=== PATIENT | male | born 1970 | race Caucasian/White ===

== ENCOUNTER → 2021-07-10 14:36 | Outpatient (BNVA) | payer MEDICARE, MEDICAID, SELFPAY | PROVIDERS: Visit Provider Psychiatry & Neurology Neurology | DX: G47.33 Obstructive sleep apnea (adult) (pediatric) (principal); G47.31 Primary central sleep apnea; G51.0 Bell's palsy; C71.9 Malignant neoplasm of brain, unspecified; Z99.89 Dependence on other enabling machines and devices | CPT/HCPCS: 99212 ==

== ENCOUNTER → 2021-10-17 10:24 | Outpatient (BNVA) | payer MEDICARE, MEDICAID, SELFPAY | PROVIDERS: PCP Nurse Practitioner Adult Health; Visit Provider Psychiatry & Neurology Neurology | DX: G47.33 Obstructive sleep apnea (adult) (pediatric) (principal); G51.0 Bell's palsy; G47.31 Primary central sleep apnea; C71.9 Malignant neoplasm of brain, unspecified; Z99.81 Dependence on supplemental oxygen | CPT/HCPCS: 99212 ==

== ENCOUNTER → 2021-11-23 15:07 | Outpatient (BNVA) | payer MEDICARE, MEDICAID, SELFPAY | PROVIDERS: PCP Nurse Practitioner Adult Health; Visit Provider Nurse Practitioner Family | DX: G47.33 Obstructive sleep apnea (adult) (pediatric) (principal); G51.0 Bell's palsy; C71.9 Malignant neoplasm of brain, unspecified; G47.31 Primary central sleep apnea | CPT/HCPCS: 99212 ==

== ENCOUNTER → 2022-02-18 09:29 | Outpatient (BNVA) | payer MEDICARE, MEDICAID, SELFPAY | PROVIDERS: PCP Nurse Practitioner Adult Health; Visit Provider Nurse Practitioner Family | DX: G47.33 Obstructive sleep apnea (adult) (pediatric) (principal); M54.2 Cervicalgia | CPT/HCPCS: 99212 ==

== ENCOUNTER → 2022-08-14 08:21 | Outpatient (BNVA) | payer MEDICARE, MEDICAID, SELFPAY | PROVIDERS: PCP Nurse Practitioner Adult Health; Visit Provider Nurse Practitioner Family | DX: G47.33 Obstructive sleep apnea (adult) (pediatric) (principal); Z99.89 Dependence on other enabling machines and devices | CPT/HCPCS: 99212 ==

== ENCOUNTER 2023-02-13 09:06 | Outpatient (AMB) | payer MEDICARE, MEDICAID, SELFPAY ==
--- NOTE | 2023-02-13 09:10 | MHC.OFFVIS ---
Intake Vital Signs 02/13/23 09:11 Height 6 ft Pulse 81 Pulse Source Pulse Oximeter Pulse Oximetry (%) 95 Oxygen Delivery Method Room Air Intake Visit Reasons: 6 mnts f/u sleep compliance - Confirmed Intake Note: Patient presents for 6 month follow up sleep compliance. Patient states no issues today, Im interested in getting more information on the inspire procedure. Allergies morphine Adverse Reaction (Intermediate, Verified 02/13/23 09:13) irritation HPI HPI Comments History of Present Illness Details 52 y/o male patient presents for follow up of TJ. CPAP compliance report is not available at this time, pt needs to send SD card. He is on CPAP at 9 cmH2O. Pt reports he uses CPAP nightly. Pt reports he can sleep well with CPAP, average 7 hours nightly. He states that bloating has been better, but when his headgear strap loose he gets more bloating. Daytime tiredness has improved, not dozing off. 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 GERD (gastroesophageal reflux disease) Kidney stones Obesity Tremors of nervous system Surgical History H/O of thyroplasty H/O nasal septoplasty Family History Father History of heart attack Mother Breast cancer Maternal Grandfather Prostate cancer Social History Alcohol intake: current Alcohol intake frequency: holidays/special occasions only Patient Tobacco Use Status: Never used Tobacco Review of Systems Const All systems reviewed & are unremarkable except as noted in HPI and below ENT Reports Normal hearing present Neuro Reports Normal hearing present and Reports Abnormal speech present (Dysarthria.) Physical Exam Vital Signs: Last Vital Signs Pulse 81 02/13/23 09:11 Pulse Ox 95 02/13/23 09:11 Oxygen Delivery Method Room Air 02/13/23 09:11 Const General: cooperative Nutritional Appearance: obese Orientation/consciousness: patient oriented x3 Limitations: wheelchair Neck Other: Limited ROM of neck due to neck pain. Resp Effort & Inspection: normal respiratory effort and able to speak in complete sentences Neuro Other: Right eye and facial droop. General: patient oriented x3 Cranial nerves: Yes Normal hearing present Cognition (Neuro): normal cognition Speech: Abnormal speech present (Dysarthria.) Gait exam (Neuro): Assistive device used (wheel chair.) Deep tendon reflexes (DTR's): Right triceps reflex intensity grade: 2+, Left triceps reflex intensity grade: 2+, Rt Biceps (C5, C6): 2+, Left biceps reflex intensity grade: 2+, Right brachioradialis reflex intensity grade: 2+ and Left brachioradialis reflex intensity grade: 2+ Psych Appearance: grossly normal Mental Status: mental status grossly normal Affect: normal affect Attitude: cooperative Assessment & Plan Assessment & Plan (1) Obstructive sleep apnea: Code(s): G47.33 - Obstructive sleep apnea (adult) (pediatric) Plan Continue to use CPAP at 9 cmH2O. Stressed compliance, use CPAP nightly and more than 4 hours. Called [employer] and to send new SD card to patient and new headgear strap. Pt will call if his symptoms worsened or any questions. Coding Level of Care Code Est Pt Level 3 (97241) Diagnoses Obstructive sleep apnea G47.33
[2023-02-13 09:11] VITALS: PULSE 81; O2SAT 95
== END 2023-02-13 09:33 | disposition home or self-care (01) ==
PROVIDERS: Visit Provider Nurse Practitioner Family
DX: G47.33 Obstructive sleep apnea (adult) (pediatric) (principal)
CPT/HCPCS: 99213

== ENCOUNTER → 2023-02-13 09:06 | Outpatient (BNVA) | payer MEDICARE, MEDICAID, SELFPAY | PROVIDERS: Visit Provider Nurse Practitioner Family | DX: G47.33 Obstructive sleep apnea (adult) (pediatric) (principal) | CPT/HCPCS: 99212 ==

== ENCOUNTER 2023-04-17 10:35 | Outpatient (AMB) | payer MEDICARE, MEDICAID, SELFPAY ==
[2023-04-17 10:46] VITALS: BP 116/70; PULSE 80; O2SAT 95; BMI 40.5
--- NOTE | 2023-04-17 10:46 | A.OFFVIS_ITS ---
Intake Vital Signs 04/17/23 10:46 Height 6 ft Weight 299 lb BMI 40.5 BP 116/70 Blood Pressure Location Lt brachial Position Sitting Pulse 80 Pulse Source Pulse Oximeter Pulse Oximetry (%) 95 Oxygen Delivery Method Room Air Intake Visit Reasons: 3 no f/u - Sleep-Confirmed Intake Note: Patient presents for a 3 mo fu-TJ Leasing Assistant Required: No Accompanied by: Self / Same As Patient Allergies morphine Adverse Reaction (Intermediate, Verified 04/17/23 10:50) irritation HPI HPI Comments History of Present Illness Details 53 y/o male patient presents for follow up of TJ. CPAP compliance report is not available at this time, pt needs to send SD card, but he did not. He is on CPAP at 9 cmH2O. Pt reports he uses CPAP nightly. Pt reports he can sleep well with CPAP, average 7 hours nightly. He states that bloating has been better, but when his headgear strap loose he gets more bloating. He has received new headgear. Daytime tiredness has improved, not dozing off. 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 GERD (gastroesophageal reflux disease) Kidney stones Obesity Tremors of nervous system Surgical History H/O of thyroplasty H/O nasal septoplasty Family History Father History of heart attack Mother Breast cancer Maternal Grandfather Prostate cancer Social History Alcohol intake: current Alcohol intake frequency: holidays/special occasions only Patient Tobacco Use Status: Never used Tobacco Review of Systems Const All systems reviewed & are unremarkable except as noted in HPI and below ENT Reports Normal hearing present Neuro Reports Normal hearing present and Reports Abnormal speech present (Dysarthria.) Physical Exam Vital Signs: Last Vital Signs Pulse 80 04/17/23 10:46 BP 116/70 04/17/23 10:46 Pulse Ox 95 04/17/23 10:46 Oxygen Delivery Method Room Air 04/17/23 10:46 BMI result Body Mass Index 40.5 Const General: cooperative Nutritional Appearance: obese Orientation/consciousness: patient oriented x3 Limitations: wheelchair Neck Other: Limited ROM of neck due to neck pain. Resp Effort & Inspection: normal respiratory effort and able to speak in complete sentences Neuro Other: Right eye and facial droop. General: patient oriented x3 Cranial nerves: Yes Normal hearing present Cognition (Neuro): normal cognition Speech: Abnormal speech present (Dysarthria.) Gait exam (Neuro): Assistive device used (wheel chair.) Deep tendon reflexes (DTR's): Right triceps reflex intensity grade: 2+, Left triceps reflex intensity grade: 2+, Rt Biceps (C5, C6): 2+, Left biceps reflex intensity grade: 2+, Right brachioradialis reflex intensity grade: 2+ and Left brachioradialis reflex intensity grade: 2+ Psych Appearance: grossly normal Mental Status: mental status grossly normal Affect: normal affect Attitude: cooperative Assessment & Plan Assessment & Plan (1) Obstructive sleep apnea: Code(s): G47.33 - Obstructive sleep apnea (adult) (pediatric) Plan Continue to use CPAP at 9 cmH2O. Stressed compliance, use CPAP nightly and more than 4 hours. Called [employer] and to send new SD card to patient. Pt will call if his symptoms worsened or any questions. Coding Level of Care Code Est Pt Level 3 (43277) Diagnoses Obstructive sleep apnea G47.33
== END 2023-04-17 11:09 | disposition home or self-care (01) ==
PROVIDERS: PCP Nurse Practitioner Adult Health; Visit Provider Nurse Practitioner Family
DX: G47.33 Obstructive sleep apnea (adult) (pediatric) (principal)
CPT/HCPCS: 99213

== ENCOUNTER → 2023-04-17 10:35 | Outpatient (BNVA) | payer MEDICARE, MEDICAID, SELFPAY | PROVIDERS: PCP Nurse Practitioner Adult Health; Visit Provider Nurse Practitioner Family | DX: G47.33 Obstructive sleep apnea (adult) (pediatric) (principal) | CPT/HCPCS: 99212 ==

== ENCOUNTER 2024-02-20 09:24 | Outpatient (AMB) | payer MEDICARE, MEDICAID, SELFPAY ==
--- NOTE | 2024-02-20 09:43 | MHC.OFFVIS ---
Vital Signs 02/20/24 09:43 Height 6 ft Intake Visit Reasons: 6 mo f/u - Sleep Intake Note: Patient presents for 6 month follow up sleep. Allergies morphine Adverse Reaction (Intermediate, Verified 02/20/24 09:59) irritation Medication List - Last Reconciled 03/02/24 by KAREN Jones cholecalciferol (vitamin D3) 25 mcg PO DAILY lisinopril 20 mg PO DAILY magnesium oxide 200 - 400 mg (1 - 2 x 200 mg magnesium) PO BEDTIME 30 days omeprazole 20 mg PO DAILY vit C-vit P-Bg-Do-lutein-zeax 250 mg-200 unit -12.5 mg-1 mg (ICaps AREDS2 (copper citrate)) 2 tabs PO DAILY HPI Comments Details: 53 yo male w/ h/o astrocytoma, facial paralysis on the right side, presents for f/u of TJ Pt is compliant w/ CPAP tx. He is sleeping about 7 hours a night, 10pm is bedtime and wakes up early at 4am or sometimes sleeps in until 7am or 8am and feeling tired. He washes the mask, cleans with rubbing alcohol, changes the filters, uses distilled water. He reports no leaks, and has a snug fit most evenings. PAP compliance report shows residual AHI is 5.6, which is good for him. He reports new symptoms which are concerning for him: When he lies down he sees an explosion. Through out the day he smells smoke like something is burning 2 or 3 days per week. These episodes last for 10 seconds, he looks to see if something is on fire, burning toast, and or smell of wood burning. He has Macular degeneration so things tend to be blurry at baseline but worse when tired, uses AREDS BID. Uses reading glasses and everything is clearer. Denies headaches, vomiting, or swallowing issue. Feels dizzy when sits sometimes from a standing position or if he gets up too fast. Left side hip numbness at night, which goes away when turns over. 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 He relies on w/c for distance mobility. 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 Tremors of nervous system Obesity GERD (gastroesophageal reflux disease) Astrocytoma brain tumor Surgical History H/O of thyroplasty H/O nasal septoplasty Family History Father History of heart attack Mother Breast cancer Maternal Grandfather Prostate cancer Social History Alcohol intake: current Alcohol intake frequency: holidays/special occasions only Patient Tobacco Use Status: Never used Tobacco Physical Exam Const General: cooperative and no acute distress Orientation/consciousness: patient oriented x3 Resp Effort & Inspection: normal respiratory effort and able to speak in complete sentences Neuro Other: Chronic right facial droop, right lingual atrophy, dysarthria. Pt sitting upright in w/c. General: patient oriented x3 and moves all extremities Cognition (Neuro): normal cognition Deep tendon reflexes (DTR's): Right patellar reflex intensity grade: 2+ and Left patellar reflex intensity grade: 2+ Psych Appearance: grossly normal Mental Status: mental status grossly normal Affect: normal affect Attitude: cooperative Assessment & Plan Assessment & Plan (1) Olfactory hallucinations: Code(s): R44.2 - Other hallucinations Category: Medical (2) Obstructive sleep apnea: Code(s): G47.33 - Obstructive sleep apnea (adult) (pediatric) Category: Medical (3) Central sleep apnea: Code(s): G47.31 - Primary central sleep apnea Category: Medical (4) 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 Will send patient for MRI. EEG Testing with cap, as glue adheres to his scalp and is not tolerable. For new onset olfactory hallucinations of smelling burnt toast and wood in setting of h/o astrocytoma, and new onset episodes of loud noise sounds like explosions: Brain MRI w/wo- at [facility] per pt request EEG - at [facility] per pt request- pt requests EEG be done w/ cap d/t glue sticking on to his scalp. Mg 200- 400 at bedtime. Will follow-up upon review of above and patient to follow-up in clinic in 6 months or sooner prn. Pt seen by Sweta MORRIS in coordination w/ myself KAREN Jones-ANASTASIIA, I agree with the above documentation and plan. 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
== END 2024-02-20 10:56 | disposition home or self-care (01) ==
LOC: HO.HSMS 09:25
PROVIDERS: Absent Provider Nurse Practitioner Family; PCP Nurse Practitioner Adult Health; Visit Provider Nurse Practitioner Family
DX: R44.2 Other hallucinations (principal); G47.33 Obstructive sleep apnea (adult) (pediatric); G47.31 Primary central sleep apnea; G51.0 Bell's palsy
CPT/HCPCS: 99214

== ENCOUNTER → 2024-02-20 09:24 | Outpatient (BNVA) | payer MEDICARE, MEDICAID, SELFPAY | PROVIDERS: Absent Provider Nurse Practitioner Family; PCP Nurse Practitioner Adult Health; Visit Provider Nurse Practitioner Family | DX: R44.2 Other hallucinations (principal); G47.33 Obstructive sleep apnea (adult) (pediatric); G47.31 Primary central sleep apnea; G51.0 Bell's palsy | CPT/HCPCS: 99212 ==

== ENCOUNTER 2024-08-25 08:25 | Outpatient (AMB) | payer MEDICARE, MEDICAID, SELFPAY ==
--- OUTSIDE RECORDS SUMMARY | 2024-08-25 08:37 | XMS_ITS | Data Portability ---
Author Organization [place] - [facility], Allergy Address [address] [place] [address] Care Team Providers Care Commercial Credit Specialist Name Role Phone MICH BOTELLO Primary Care Provider Assessment Encounter Date Assessment Date Assessment LastModified by Organization Details LastModified Time 11/04/2023 11/04/2023 Recommendations : Follow up with referring provider. Not available 11/04/2023 10:39:59 06/17/2024 06/17/2024 54-year-old male presents today for ear cleaning. He has a history of astrocytoma status post surgery and radiation. He reports that for the past six weeks his hearing has seemed diminished despite use of hearing aids. He reports that he has longstanding tinnitus but now it seems louder. Right ear was cleaned of cerumen with suction. TM was intact with well aerated middle ear space. Left ear was debrided and there was a mixture of cerumen and purulent debris. I have issued him a prescription for Ciprodex drops. I would like to see him back in two weeks for reevaluation. Once the infection is cleared he would likely benefit from updated audiometric testing. Not available 06/17/2024 11:01:50 07/01/2024 07/01/2024 Left otorrhea resolved. Audiometric testing demonstrates stable hearing on the right. He has had mild decline in his hearing on the left. Type A tympanograms bilaterally. He was issued a copy of his audiogram to bring to [facility] to have his hearing aid adjusted. He will follow up in 3 months for ear cleaning. Not available 07/01/2024 10:35:26 Plan of Treatment Reminders Order Date Submit Date Provider Last Modified By Organization Details Last Modified Time Details Appointments Establish ed 15 2024 09:30A M ROCCO VILLA PA-C Not available Not available Not available Lab None recorded. Referral None recorded. Procedures None recorded. Surgeries None recorded. Imaging None recorded. Medication Orders Ciprodex 0.3 %-0.1 % ear drops,ayala pension 2024 025 [facility], [address] [place] [address], [id number], 07/01/2024 09:33:03 Patient TargetsNo targets recorded. Patient InstructionsNo instructions recorded. Reason for Referral None Reported. Results Created Date Observation Date Name Description Value Unit Range Abnormal Flag Note LastModifiedBy Organization Detail LastModifiedTime 11/05/19 audio gram No observ ation record ed. BARCODE Not Available 2023 12:34:40 12/09/19 24 10/11/2021 imagi ng/di agnos tic resul t No observ ation record ed. [email or web address] Not Available 20:51:22 12/09/19 24 10/11/2021 imagi ng/di agnos tic resul t No observ ation record ed. [email or web address] Not Available 20:51:30 12/09/19 24 10/28/2022 imagi ng/di agnos tic resul t No observ ation record ed. [email or web address] Not Available 20:51:31 12/09/19 24 10/28/2022 imagi ng/di agnos tic resul t No observ ation record ed. [email or web address] Not Available 20:51:35 12/09/19 24 03/25/2019 audio gram No observ ation record ed. [email or web address] Not Available 20:51:40 12/09/19 24 10/11/2021 audio gram No observ ation record ed. [email or web address] Not Available 20:52:45 12/09/19 24 01/25/2019 audio gram No observ ation record ed. [email or web address] Not Available 20:53:18 12/09/19 24 03/25/2019 audio gram No observ ation record ed. [email or web address] Not Available 20:53:25 07/02/19 25 audio gram No observ ation record ed. BARCODE Not Available 2024 14:49:03 Result Notes None recorded. Problems Name Problem SNOMED Code Status Onset Date Resolution Date Notes Provider Name and Address Organization Details Recorded Time Impacted cerumen in right ear 08983716114 60062 Active 2018 Impacted cerumen, right ear; Note: Date Diagnose d: 9 11:32 AM (H61.21) Not Available [facility] 4 02:59:21 Sensorin eural hearing loss of bilatera l ears 893973334 Active 2021 Sensorin eural hearing loss, bilatera l; Note: Date Diagnose d: 2 10:20 AM (H90.3) Not Available [facility] 4 02:59:22 Otorrhea of left ear 53938924004 15657 Completed 201911/21/2023 Otorrhea , left ear; Note: Date Diagnose d: 0 9:43 AM (H92.12) ROCCO VILLA PA-C [address] [place] [address], [place], [address] , 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; Note: Date Diagnose d: 7 1:00 PM (G51.8) Not Available [facility] 4 02:59:22 Bilatera l tinnitus 83899297930 02 Active 2021 Tinnitus , bilatera l; Note: Date Diagnose d: 2 10:20 AM (H93.13) Not Available [facility] 4 02:59:21 Vasomoto r rhinitis 7275689 Active 2019 Vasomoto r rhinitis ; Note: Date Diagnose d: 06/24/2019 9:44 AM (J30.0) Not Available [facility] 4 02:59:23 Impacted cerumen in left ear 91529247132 60805 Active 2022 Impacted cerumen, left ear; Note: Date Diagnose d: 3 10:11 AM (H61.22) Not Available [facility] 4 02:59:21 Impacted cerumen of bilatera l ears 17882100568 68247 Active 2016 Impacted cerumen, bilatera l; Note: Date Diagnose d: 7 11:47 AM (H61.23) Not Available [facility] 4 02:59:24 Sensorin eural hearing loss 05288330 Active 2016 Sensorin eural hearing loss, unilater al, right ear, with unrestri cted hearing on the contrala teral side; Note: Date Diagnose d: 7 11:46 AM (H90.41) Not Available [facility] 4 02:59:23 Obstruct severino sleep apnea syndrome 27784345 Active 2023 Obstruct severino sleep apnea (adult) (pediatr ic); Note: Date Diagnose d: 07/29/2023 12:16 PM (G47.33) Not Available [facility] 4 02:59:22 Nasal congesti on 39927288 Active 2023 Nasal congesti on; Note: Date Diagnose d: 07/29/2023 12:16 PM (R09.81) Not Available [facility] 4 02:59:23 Otorrhea of left ear 32230850684 22344 Active 2024 Otorrhea , left ear; Note: Date Diagnose d: 0 9:43 AM (H92.12) ROCCO VILLA PA-C [address] [place] [address], [place], [address] , [facility] - [facility] 5 10:39:29 Problem Notes None recorded. Procedures Surgical History Date Name Laterality Status Provider Name and Address Organization Details Recorded Time 5 Comp Audio with Tymps - 53250 & 90117 completed ESTEVAN ARBOUR, AUD [address], [place], [address], [place] - [facility] 07/01/2024 09:55:23 5 Cerumen removal without microscope bilat completed ROCCO VILLA PA-C [address], [place], [address], [place] - [facility] 06/17/2024 10:56:37 4 Air & Speech Audio with Tymps - 28372, 05796 & 10592 completed LEANNE MARVIN, AuD [address], [place], [address], [place] - [facility] 11/04/2023 10:52:43 Imaging Results Imaging Date Name Status LastModified by Organiz ation Details LastModified Time 11/05/2023 audiogram completed BARCODE Information no t available 11/05/2023 12:34:40 10/11/2021 imaging/diagno stic result completed Information not available 12/09/2023 20:51:22 10/11/2021 imaging/diagno stic result completed Information not available 12/09/2023 20:51:30 10/28/2022 imaging/diagno stic result completed Information not available 12/09/2023 20:51:31 10/28/2022 imaging/diagno stic result completed Information not available 12/09/2023 20:51:35 03/25/2019 audiogram completed Information not available 12/09/2023 20:51:40 10/11/2021 audiogram completed Information not available 12/09/2023 20:52:45 01/25/2019 audiogram completed Information not available 12/09/2023 20:53:18 03/25/2019 audiogram completed Information not available 12/09/2023 20:53:25 07/01/2024 audiogram completed BARCODE Information no t available 07/01/2024 14:49:03 Procedure Notes None recorded. Medical Equipment None Reported. Allergies Allergen ID Allergen Name Allergen Category Reaction Reaction Severity Criticality Documentation Date Start Date Code Code System Note Provider Name and Address Organization Details Recorded Time 474171 morphine medicatio n other Not available Not available 09/02/2023 7052 RxNorm React ion: unkno wn, unspe cifie d;; Not Available [facility] 4 01:17:04 955665 Demerol medicatio n Not available Not available Not available 11/04/2023 92937 1 RxNorm Юлия Kelsea aaron [place] - [facility] 4 10:15:52 Medications Name Sig Start Date Stop Date Status Note LastModified by Organization Details LastModified Time lisinopri l 20 mg tablet active Not Available Not Available Not Available triamcino lone acetonide 0.1 % topical cream 11/03 completed Not Available Not Available Not Available ofloxacin 0.3 % ear drops 11/03 completed Medicati on ID: [id number] D uration Value: 10 Brand Name: ofloxaci n Send Method: E-Prescr ibed Sub s Allowed: subs OK Speci al Instruct ion: Apply 4 drops to left ear twice a day for 10 days Med icationG enericNa me: ofloxaci n Medica tion ID: [id number] D uration Value: 10 Brand Name: ofloxaci n Send Method: E-Prescr ibed Sub s Allowed: subs OK Speci al Instruct ion: Apply 4 drops to left ear twice a day for 10 days Med icationG enericNa me: ofloxaci n Not Available Not Available Not Available triamcino lone acetonide 0.025 % topical ointment active Not Available Not Available Not Available omeprazol e 20 mg capsule,d elayed release active Not Available Not Available Not Available Vitamin D2 1,250 mcg (50,000 unit) capsule Take by oral route. active Not Available Not Available No t Available ipratropi um bromide 21 mcg (0.03 %) nasal spray 04/03 completed Medicati on ID: [id number] B rand Name: ipratrop ium bromide Send Method: E-Prescr ibed Sub s Allowed: subs OK Medic ationGen ericName : ipratrop ium bromide Not Available Not Available Not Available TobraDex 0.3 %-0.1 % eye drops,ayala pension 11/03 completed Medicati on ID: [id number] D uration Value: 14 Prescri bed By Name: Nilda Blankenship JACKIE Bowen nd Name: TobraDex Send Method: E-Prescr ibed Sub s Allowed: subs OK Speci al Instruct ion: 4 drops into left ear BID X 14 days Med icationG enericNa me: TobraDex Medicat ion ID: [id number] D uration Value: 14 Prescri bed By Name: Nilda JACKIE Blankenship nd Name: TobraDex Send Method: E-Prescr ibed Sub s Allowed: subs OK Speci al Instruct ion: 4 drops into left ear BID X 14 days Med icationG enericNa me: TobraDex Not Available Not Available Not Available Vitamin D3 25 mcg (1,000 unit) capsule 12/15 completed Medicati on ID: [id number] D uration Value: 30 Reason: () Brand Name: Vitamin D3 Send Method: E-Prescr ibed Sub s Allowed: subs OK Speci al Instruct ion: TAKE 1 CAPSULE DAILY Me dication GenericN ady: Vitamin D3 Not Available Not Available Not Available ciproflox acin 0.3 %-dexamet hasone 0.1 % ear drops,ayala pension INSTILL 4 DROPS INTO AFFECTED EAR(S) BY OTIC ROUTE 2 TIMES PER DAY FOR 14 DAYS 07/01 completed Not Available Not Available Not Available cholecalc iferol (vitamin D3) 25 mcg (1,000 unit) tablet 02/02 completed Not Available Not Available Not Available PreserVis ion AREDS 2 Plus Multivit 200 mcg-15 mcg-5 mg-1 mg capsule Take by oral route. active Not Available Not Available No t Available Vitals Date Recorded Body height Body mass index (BMI) Body weight Provider Name and Address Organization Details Last Updated DateTime 07/01/2024 182.88 cm 40.7 kg/m2 625921.71 g Юлия Enamorado [place] - [facility] 07/01/2024 09:32:54 Date Recorded Body height Body mass index (BMI) Body weight Provider Name and Address Organization Details Last Updated DateTime 11/04/2023 182.88 cm 40.6 kg/m2 831801.12 g Юлия Enamorado [facility] 11/04/2023 10:15:39 Date Recorded Body height Body mass index (BMI) Body weight Provider Name and Address Organization Details Last Updated DateTime 02/03/2024 182.88 cm 40.7 kg/m2 290471.71 g Юлия Kelsea [facility] 02/03/2024 09:35:38 Date Recorded Body height Body mass index (BMI) Body weight Provider Name and Address Organization Details Last Updated DateTime 06/17/2024 182.88 cm 40.7 kg/m2 415260.71 g Janeth Domenic [facility] 06/17/2024 10:10:08 Social History None recorded. Functional Status None recorded. Mental Status None recorded. Family History Nothing Reported. Medical History No medical history recorded. Past Encounters Encounter ID Performer Location Encounter Start Date Encounter Closed Date Diagnosis/Indication Diagnosis SNOMED-CT Code Diagnosis ICD10 Code Diagnosis Note [id number] LUISA CAMPOVERDE MD [facility] on [address] [place] [address], [place] [address] 11/04/2023 10:00:59 11/04/2023 11:20:06 Sensorineural hearing loss of bilateral ears 055940489 H90.3 53-year-ol d male presents today for reassessme nt. He has a history of astrocytom a status post surgery and radiation. Cerumen was removed bilaterall y and tolerated well. He finds it difficult to wear both of his hearing aids, as it seems to affect the clarity of his speech. His most recent audiogram today showed stable hearing. Left ear is better hearing ear. We discussed that part of the difficulty might be his poor word recognitio n on the right. I did recommend that he wear his hearing aids as much as possible so that his brain can compensate . We gave him a copy of his audiogram to bring to [facility]. Follow up 3 months. Impacted c erumen of bilateral ears [id number] 243727 H61.23 [id number] Sidney COX [facility] on [address] [place] [address], [place] [address] 11/04/2023 10:38:01 11/04/2023 11:20:18 Sensorineural hearing loss 18846743 H90.41 Audiologic al evaluation results:[facility] ear:{{Norm al Mild Mo derate* Mo derately-s evere Roxane re Profoun d}} {{hearing sloping to a mild slopi ng to a moderate s loping to moderately severe slo ping to severe slo ping to profound* flat high frequency low frequency mid frequency cookie bite torres curve}} {{with sen sorineural hearing loss with* cond uctive hearing loss with mixed hearing loss with}} {{excellen t good neyda r poor* no measurable }} word recognitio n.Left ear:{{Norm al Mild Mo derate Mod erately-se anton* Roxane re Profoun d}} {{hearing sloping to a mild slopi ng to a moderate s loping to moderately severe slo ping to severe slo ping to profound f lat high frequency* low frequency mid frequency cookie bite torres curve}} {{with sen sorineural hearing loss with* cond uctive hearing loss with mixed hearing loss with}} {{excellen t good* fa ir poor no measurable }} word recognitio n. Tympanomet ry:Right Ear:{{Type A* Type As Type Ad Type C Type C, shallow & rounded Ty pe B Type B with large volume Cou ld not maintain a hermetic seal}}Left Ear:{{Type A* Type As Type Ad Type C Type C, shallow & rounded Ty pe B Type B with large volume Cou ld not maintain a hermetic seal}} [id number] LUISA CAMPOVERDE MD [facility] on [address] [place] [address] 02/03/2024 09:31:32 02/03/2024 09:46:06 Sensorineural hearing loss of bilateral ears 461835602 H90.3 53-year-ol d male presents today for reassessme nt. He has a history of astrocytom a status post surgery and radiation. Thankfully since his last visit he has found his hearing aids more clear due to more thorough cleaning. Cerumen was removed bilaterall y and tolerated well. Follow up 3 months. Impacted c erumen of bilateral ears 1874409004 941278 H61.23 [id number] ROCCO VILLA PA-C [facility] on [address] [place] [address] 06/17/2024 10:02:43 06/17/2024 10:42:34 Otorrhea of left ear 7812755319 747482 H92.12 Impacted c erumen in right ear 7187321277 245376 H61.21 Bilateral tinnitus 59072 04496 102 H93.13 [id number] ROCCO VILLA PA-C [facility] on [address] [place] [address] 07/01/2024 08:59:58 07/01/2024 10:18:15 Sensorineural hearing loss of bilateral ears 594183876 H90.3 [facility] ear:{{Norm al sloping Mi ld Moderat e* Moderat sarah-severe Severe Pr ofound Nor mal auditory thresholds }} to {{mild mod erate mode rately-sev ere severe profound* with}} {{sensorin eural hearing loss with* cond uctive hearing loss with mixed hearing loss with}} {{excellen t good neyda r poor* no t measurable }} word recognitio n.Left ear:{{Norm al sloping Mi ld* Modera te Moderat sarah-severe Severe Pr ofound Nor mal auditory thresholds }} to {{mild mod erate* mod erately-se anton sever e profound with}} {{sensorin eural hearing loss with* cond uctive hearing loss with mixed hearing loss with}} {{excellen t good* fa ir poor no t measurable }} word recognitio n.Tympanom etry:Right Ear:{{Type A Type As Type Ad* Type C Type C, shallow & rounded Ty pe B Type B with large volume Cou ld not maintain a hermetic seal}}Left Ear:{{Type A* Type As Type Ad Type C Type C, shallow & rounded Ty pe B Type B with large volume Cou ld not maintain a hermetic seal}} Bilateral tinnitus 77322 04787 102 H93.13 Health Concerns Section Related Observation LastModified by Organization Detai ls LastModified Time None Recorded Concern Status LastModified by Organization Details LastModified Time None Recorded Advance Directives Directive None Recorded Payers Insurance Date Sequence Insurance Name Policy Number Policy Steele Covered Member ID Steele Member ID Guarantor Name 06/28/2024 1 [place] [employer] Raffi Morales [id number] Raffi Morales 06/28/2024 2 [place] [facility] Raffi Morales [id number] Raffi Morales Notes Date Note Type Note Provider Name and Address Organization Details Recorded Time 11/04/2023 text/html Audiological Evaluation HPIReported bypatient.Hearing loss perceived:both ears: right ear worse Use of amplification or other hearing devices:hearing aid: both ears Sidney COX [address],[place] [address], [place], [address], [place] - [facility] 11/04/2023 10:54:14 11/04/2023 text/html 53-year-old male presents today for follow-up. He finds that his hearing aids are not very helpful. He finds it they reduce the clarity of his speech. He has not had any ear infections. PV: 53-year-old male presents today for reassessment. He has a history of astrocytoma status post surgery and radiation.Cerumen was removed bilaterally and tolerated well. He finds it difficult to wear both of his hearing aids, as it seems to affect the clarity of his speech. His most recent audiogram at [place] was last summer, overall stable from testing in our office in 2021. Left ear is better hearing ear. He may find that the hearing aids are more successful with the cleaning today. We will plan for updated audiometric testing at his next visit which may help guide any adjustment to his hearing aids.He did try the sinus cones. They do help with his airflow but seem to affect rhinorrhea when he is using his CPAP. He is wondering about any surgical intervention. We discussed that the skin is fairly thick over the nasal valve so I'm not sure that a cartilage graft would be strong enough to significantly improved airflow.Follow up 3 months. LUISA CAMPOVERDE MD [address],[facility] [address], [place], [address], [facility] 11/04/2023 11:20:11 02/03/2024 text/html 53-year-old male presents today for follow-up. He was able to clean his hearing aids more thoroughly and finds them more helpful. PV: 53-year-old male presents today for reassessment. He has a history of astrocytoma status post surgery and radiation.Cerumen was removed bilaterally and tolerated well. He finds it difficult to wear both of his hearing aids, as it seems to affect the clarity of his speech. His most recent audiogram at [place] was last summer, overall stable from testing in our office in 2021. Left ear is better hearing ear. He may find that the hearing aids are more successful with the cleaning today. We will plan for updated audiometric testing at his next visit which may help guide any adjustment to his hearing aids.He did try the sinus cones. They do help with his airflow but seem to affect rhinorrhea when he is using his CPAP. He is wondering about any surgical intervention. We discussed that the skin is fairly thick over the nasal valve so I'm not sure that a cartilage graft would be strong enough to significantly improved airflow.Follow up 3 months. LUISA CAMPOVERDE MD [address], [address], [facility] - [facility] 02/07/2024 08:44:44 06/17/2024 text/html 54-year-old male presents today for ear cleaning. He has a history of astrocytoma status post surgery and radiation. He reports that for the past six weeks his hearing has seemed diminished despite use of hearing aids. He reports louder tinnitus especially in the left ear. He denies drainage from the ears. LUISA CAMPOVERDE MD [address], [address], [facility] 06/19/2024 07:54:45 07/01/2024 text/html 54 year old male presents for follow up of left otorrhea. He completed Ciprodex drops and denies drainage. He has felt that his hearing has declined since last audiometric testing in October. He uses hearing aids from [facility]. He has a history of astrocytoma status post surgery and radiation CHIDI FRANCO MD [address], [address], [facility] - [facility] 07/01/2024 11:09:41
[2024-08-25 09:27] VITALS: BP 110/70; PULSE 89; O2SAT 94
--- NOTE | 2024-08-25 09:27 | MHC.OFFVIS ---
Vital Signs 08/25/24 09:27 Height 6 ft BP 110/70 Blood Pressure Location Lt brachial Position Sitting Pulse 89 Pulse Source Pulse Oximeter Pulse Oximetry (%) 94 Oxygen Delivery Method Room Air Intake Visit Reasons: 6 mo f/u - Sleep Intake Note: Patient presents 6 month follow up for TJ. 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 Accompanied by: Self / Same As Patient Allergies morphine Adverse Reaction (Intermediate, Verified 02/20/24 09:59) irritation Medication List - Last Reconciled 08/25/24 by KAREN Jones cholecalciferol (vitamin D3) 25 mcg PO DAILY lisinopril 20 mg PO DAILY magnesium oxide 200 - 400 mg (1 - 2 x 200 mg magnesium) PO BEDTIME 30 days omeprazole 20 mg PO DAILY vit C-vit X-Gu-Ut-lutein-zeax 250 mg-200 unit -12.5 mg-1 mg (ICaps AREDS2 (copper citrate)) 2 tabs PO DAILY HPI Comments Details: Right- handed, 54 yo male w/ h/o astrocytoma, 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 Patient denies any significant interval changes, however he would like to discuss right shoulder pain symptoms. Pt reports he has been having right shoulder aching/stabbing pain when pulling is arm backwards or above his head. The shoulder pain triggers right neck pain and right occipital headache. May have BUE numbness if rests his arms on his desk for an extended time, shaking the arms alleives this. Denies RUE weakness. He did PT for 2 weeks in the fall which helped some, but pain persists. He continues to rely on a power wheelchair for longer distances. The nocturnal headaches are alright . He is now recalling his dreams at times. He states he now just occasionally has the sense of smelling toast- now about once a month. This is not a/w LOC or spacing out. He deneis any near accidents while driving his power w/c. The baseline EEG was normal. The interval brain MRI was stable. Patient reports he is compliant with his PAP therapy, he can not sleep without it. He washes the mask, cleans with rubbing alcohol, changes the filters, uses distilled water. 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 Tremors of nervous system Obesity GERD (gastroesophageal reflux disease) Astrocytoma brain tumor Surgical History H/O of thyroplasty H/O nasal septoplasty Family History Father History of heart attack Mother Breast cancer Maternal Grandfather Prostate cancer Social History Alcohol intake: current Alcohol intake frequency: holidays/special occasions only Patient Tobacco Use Status: Never used Tobacco Physical Exam Vital Signs: Last Vital Signs Pulse 89 08/25/24 09:27 BP 110/70 08/25/24 09:27 Pulse Ox 94 08/25/24 09:27 Oxygen Delivery Method Room Air 08/25/24 09:27 Const General: cooperative and no acute distress Orientation/consciousness: patient oriented x3 Resp Effort & Inspection: normal respiratory effort and able to speak in complete sentences Neuro Other: Chronic right facial droop, right lingual atrophy, dysarthria. Right shoulder pain elicited on internal and external shoulder rotation. Bilateral empty can test Muscle strength 5/5 throughout Pt sitting upright in w/c. General: patient oriented x3, moves all extremities and deep tendon reflexes 2+ bilaterally Cognition (Neuro): normal cognition Psych Appearance: grossly normal Mental Status: mental status grossly normal Affect: normal affect Attitude: cooperative Assessment & Plan Assessment & Plan (1) Right shoulder pain: Code(s): M25.511 - Pain in right shoulder Category: Medical (2) Olfactory hallucinations: Code(s): R44.2 - Other hallucinations Category: Medical (3) Obstructive sleep apnea: Code(s): G47.33 - Obstructive sleep apnea (adult) (pediatric) Category: Medical (4) Central sleep apnea: Code(s): G47.31 - Primary central sleep apnea Category: Medical (5) 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 Continue to clean and change CPAP supplies regularly Continue to use distilled water in CPAP water reservoir For episodes of olfactory hallucinations of smelling burnt toast and wood and episodes of loud noise sounds like explosions: Reviewed interval EEG results unremarkable- though note that patient did not have an episode of olfactory hallucination during the EEG. Reviewed interval brain MRI with and without contrast results- stable. Nocturnal explosive headaches have improved. Patient just occasionally experiencing episodes suggestive of olfactory hallucinations, however these are not associated with spacing out. Patient is not had any here actually with his power wheelchair. Thus, no indications at this time to trial an antiepileptic treatment. We will hold on further EEG testing at this point. However, if symptoms worsen, consider ambulatory EEG. For right shoulder pain, which likely is causing right neck in right-sided headaches: XR right shoulder- patient may do at location of his preference- order slip given to patient We will take the liberty of submitting a referral [facility] in [place]. Will follow-up upon review of above and patient to follow-up in clinic in 6 months or sooner prn. 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
== END 2024-08-25 10:25 | disposition home or self-care (01) ==
LOC: HO.HSMS 08:26
PROVIDERS: PCP Nurse Practitioner Adult Health; Visit Provider Nurse Practitioner Family
DX: M25.511 Pain in right shoulder (principal); R44.2 Other hallucinations; G47.33 Obstructive sleep apnea (adult) (pediatric); G47.31 Primary central sleep apnea; G51.0 Bell's palsy
CPT/HCPCS: 99214

== ENCOUNTER → 2024-08-25 08:25 | Outpatient (BNVA) | payer MEDICARE, MEDICAID, SELFPAY | PROVIDERS: PCP Nurse Practitioner Adult Health; Visit Provider Nurse Practitioner Family | DX: G47.33 Obstructive sleep apnea (adult) (pediatric) (principal); G47.31 Primary central sleep apnea; G51.0 Bell's palsy; R44.2 Other hallucinations; M25.511 Pain in right shoulder; Z99.89 Dependence on other enabling machines and devices | CPT/HCPCS: 99212 ==

== ENCOUNTER 2025-02-24 08:13 | Outpatient (AMB) | payer MEDICARE, MEDICAID, SELFPAY ==
--- NOTE | 2025-02-24 09:18 | MHC.OFFVIS ---
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 No headachs in the past 1 year He is using CPAP regularly He saw ortho ( [facility] ) for Right shoulder pain. X ray was Ok and had cortisone shot- helped some. EEG from 2023 was normal. He denies any seizures.episodes of smelling smoke - every few days - can last 5-10 minutes . He has been having these episodes 10years. History from last visit- 08/2024 -Patient denies any significant interval changes, however he would like to discuss right shoulder pain symptoms. Pt reports he has been having right shoulder aching/stabbing pain when pulling is arm backwards or above his head. The shoulder pain triggers right neck pain and right occipital headache. May have BUE numbness if rests his arms on his desk for an extended time, shaking the arms alleives this. Denies RUE weakness. He did PT for 2 weeks in the fall which helped some, but pain persists. He continues to rely on a power wheelchair for longer distances. The nocturnal headaches are alright . He is now recalling his dreams at times. He states he now just occasionally has the sense of smelling toast- now about once a month. This is not a/w LOC or spacing out. He deneis any near accidents while driving his power w/c. The baseline EEG was normal. The interval brain MRI was stable. Patient reports he is compliant with his PAP therapy, he can not sleep without it. He washes the mask, cleans with rubbing alcohol, changes the filters, uses distilled water. 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 Tremors of nervous system Obesity GERD (gastroesophageal reflux disease) Astrocytoma brain tumor Surgical History H/O of thyroplasty H/O nasal septoplasty Family History Father History of heart attack Mother Breast cancer Maternal Grandfather Prostate cancer Social History Alcohol intake: current Alcohol intake frequency: holidays/special occasions only Patient Tobacco Use Status: Never used Tobacco Physical Exam Vital Signs: Last Vital Signs Pulse 88 02/24/25 09:20 BP 120/80 02/24/25 09:20 Pulse Ox 94 02/24/25 09:20 Oxygen Delivery Method Room Air 02/24/25 09:20 Const General: cooperative and no acute distress Orientation/consciousness: patient oriented x3 Resp Effort & Inspection: normal respiratory effort and able to speak in complete sentences Neuro Other: Chronic right facial droop, right lingual atrophy, dysarthria. Right shoulder pain elicited on internal and external shoulder rotation. Bilateral empty can test Muscle strength 5/5 throughout Pt sitting upright in w/c. General: patient oriented x3 and moves all extremities Cognition (Neuro): normal cognition Psych Appearance: grossly normal Mental Status: mental status grossly normal Affect: normal affect Attitude: cooperative Assessment & Plan Assessment & Plan (1) Obstructive sleep apnea: Code(s): G47.33 - Obstructive sleep apnea (adult) (pediatric) Category: Medical (2) Central sleep apnea: Code(s): G47.31 - Primary central sleep apnea Category: Medical (3) Olfactory hallucinations: Comment: episodes of smelling smoke - every few days - can last 5-10 minutes Code(s): R44.2 - Other hallucinations Category: Medical (4) 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 Continue to clean and change CPAP supplies regularly Continue to use distilled water in CPAP water reservoir I will refer him for PT - right shoulder pain and f/u with [facility] EEG and MRI reviewed - no epileptiform discharges I suggested trialing trileptal or keppra for olfactory hallucinations ? seizures. Patient declines will monitor clinically Will follow-up upon review of above and patient to follow-up in clinic in 6 months or sooner prn. 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
[2025-02-24 09:20] VITALS: BP 120/80; PULSE 88; O2SAT 94
== END 2025-02-24 09:36 | disposition home or self-care (01) ==
PROVIDERS: PCP Nurse Practitioner Adult Health; Visit Provider Psychiatry & Neurology Neurology
DX: G47.33 Obstructive sleep apnea (adult) (pediatric) (principal); G47.31 Primary central sleep apnea; R44.2 Other hallucinations; G51.0 Bell's palsy; M25.511 Pain in right shoulder
CPT/HCPCS: 99214; G2211

== ENCOUNTER → 2025-02-24 08:13 | Outpatient (BNVA) | payer MEDICARE, MEDICAID, SELFPAY | PROVIDERS: PCP Nurse Practitioner Adult Health; Visit Provider Nurse Practitioner Family | DX: G47.33 Obstructive sleep apnea (adult) (pediatric) (principal); Z99.89 Dependence on other enabling machines and devices; G47.31 Primary central sleep apnea; R44.2 Other hallucinations; G51.0 Bell's palsy; M25.511 Pain in right shoulder | CPT/HCPCS: 99212 ==